=== PATIENT | male | born 1975 | race Caucasian/White ===

== ENCOUNTER 2021-04-16 12:14 | Emergency (ER) | payer SELFPAY ==
[2021-04-16 12:21] VITALS: BP 136/115; PULSE 112; RESP 19; TEMP 37.1; O2SAT 96; BMI 33.7
--- NOTE | 2021-04-16 12:26 | CT_ITS ---
WS: [id number] CT HEAD NONCONTRAST HISTORY: Possible brain bleed. TECHNIQUE: Contiguous axial imaging performed through the brain in 2.5 mm imaging. Bone and soft tiss ue windows. Sagittal and coronal reformats reviewed. All CT scans at [facility] use at least one of these dose optimization techniques: automated exposure control; mA and/or kV adjustment per pa tient size (includes targeted exams where dose is matched to clinical indication); or iterative recon struction. DLP: 946.42 mGy.cm COMPARISON: None available. No acute intracranial hemorrhage, midline shift or mass effect. No atrophy or prior infarcts or herniation. Ventricles: Normal size with no hydrocephalus. Paranasal sinuses: Mild mucoperiosteal thickening ethmoid air cells. Mastoid air cells: Well pneumatized. Calvarium and scalp: No skull fracture is identified. There is a significant scalp injury along the R IGHT skull. Starting at the vertex and to the RIGHT of midline there is a significant scalp injury wi th hematoma and air extending to the bone. This laceration scalp injury extends from anterior to the mid parietal bone. Most significant hematoma centered over the mid RIGHT parietal bone. CT/CT head wo con* [id number] IMPRESSION: 1. No acute intracranial blood or edema. 2. Severe soft tissue injury beginning at the skull vertex and extending along the RIGHT frontal, parietal and temporal regions. There is significant scalp i njury extending to the calvarium. No definite fracture identified.
--- NOTE | 2021-04-16 12:26 | CT_ITS ---
WS: [id number] CT FACIAL BONES HISTORY: scalp laceration TECHNIQUE: Images obtained from the supraorbital location through the mandible. Soft tissue and bone windows are reviewed. Coronal and sagittal reformats have also been submitted. DLP: 845.[address] scans at [facility] use at least one of these dose optimization techniques: automated e xposure control; mA and/or kV adjustment per patient size (includes targeted exams where dose is matc hed to clinical indication); or iterative reconstruction. COMPARISON: None available. Again noted is a lucency through the lateral posterior mass of C1 on the RIGHT which is highly suspic ious for fracture. Nondisplaced. The visualized calvarium is intact. No facial bone fractures. Again noted is the extensive scalp laceration beginning over the RIGHT lateral vertex and extending a long the RIGHT calvarium. Incompletely visualized on this facial bone CT. CT/CT facial bones wo con* [id number] IMPRESSION: 1. No facial bone fracture. 2. Again noted is a lucency through the RIGHT posterior lateral mass of C1 hig hly suspicious for fracture.
--- NOTE | 2021-04-16 12:27 | CT_ITS ---
WS: [id number] CT CERVICAL SPINE HISTORY: fall TECHNIQUE: Contiguous 2.5 mm axial imaging performed through the entire cervical spine. Sagittal and coronal reformats also performed. All CT scans at [facility] use at least one of these dose o ptimization techniques: automated exposure control; mA and/or kV adjustment per patient size (include s targeted exams where dose is matched to clinical indication); or iterative reconstruction. DLP: 769.1 mGy.cm COMPARISON: None available. Mild straightening of the normal cervical lordosis. Severe degenerative disc disease at C5-6 and C6-7 with hypertrophic osteophyte formation. Craniocervical junction is intact. Lateral masses of C1 and C2 are normal. The odontoid is intact. Facet joints are normally aligned. Seen best on the axial image at the skull base is a lucency which is nondisplaced extending through t he posterior lateral mass of C1 on the RIGHT. With the mechanism of injury, fracture needs to be cons idered. No additional fractures are identified. There is mild facet joint arthritis and vertebral body osteop hytosis. No acute-appearing disc herniations. Lung apices are clear. CT/CT cervical spin wo con* [id number] IMPRESSION: 1. Suspicious for nondisplaced fracture involving the RIGHT posterior lateral mass of C1. This is seen best on the axial images, image 22 of series 4. 2. No additional fractures are identified. No acute disc protrusions.
--- NOTE | 2021-04-16 12:27 | XR_ITS ---
WS: [email or web address] RIGHT SHOULDER: 3 VIEW(S) TECHNIQUE: Internal and external rotation with Y view. HISTORY: shoulder pain COMPARISON: None available. No fracture or dislocation or soft tissue abnormality. Glenohumeral and AC joints are unremarkable. XR/XR shoulder RT min 2V* [id number] IMPRESSION: Normal RIGHT shoulder.
[2021-04-16] MEDS: tetanus-dipt-pertussis 0.5 mL SDV IM (12:30)
[2021-04-16] MEDS: morphine 4 mg/mL SDV 1 mL IVP (12:30)
[2021-04-16] MEDS: ceFAZolin 1,000 MG in sodium chloride 0.9% (plus) 50 ML 100 MG IV (12:35)
[2021-04-16 13:10] LABS: Basophils # 0.1 10^3/uL (0.0-0.1); Basophils % 0.6 %; Eosinophils # 0.3 10^3/uL (0.0-0.8); Eosinophils % 2.7 %; Hematocrit 46.1 % (42.0-52.0); Hemoglobin 16.1 g/dL (11.7-16.6); Lymphocytes # 2.2 10^3/uL (0.8-4.8); Lymphocytes % 22.6 %; Mean Corpuscular HGB Conc 34.9 g/dL (30.0-36.0); Mean Corpuscular Hemoglobin 30.5 pg (28.0-34.0); Mean Corpuscular Volume 87.3 fl (80-94); Mean Platelet Volume 10.4 fL (7.4-10.4); Monocytes # 0.6 10^3/uL (0.2-0.9); Neutrophils # 6.39 10^3/uL (1.8-7.7); Neutrophils % 67.2 %; Nucleated Red Blood Cells % 0 %; Platelet Count 256 10^3/cmm (130-400); Red Blood Count 5.28 10^6/uL (4.1-5.3); Red Cell Distribution Width 11.8 % (12.1-15.1); White Blood Count 9.5 10^3/uL (4.0-10.0)
--- NOTE | 2021-04-16 13:12 | CT_ITS ---
WS: [email or web address] CT THORACIC SPINE noncontrast. HISTORY: Axial load injury. TECHNIQUE: Contiguous 2.5 mm axial images are reviewed to thoracic spine. Images are reformatted in s agittal and coronal planes. All CT scans at [facility] use at least one of these dose optimiz ation techniques: automated exposure control; mA and/or kV adjustment per patient size (includes targ eted exams where dose is matched to clinical indication); or iterative reconstruction. DLP: 2687.09 mGy.cm COMPARISON: None available. Posterior thoracic alignment is normal. Minimal disc space narrowing and desiccation throughout the t horacic spine. No thoracic spine fracture. Visualized ribs are intact. Mild dependent changes through out both lungs. No pulmonary laceration or contusion. No significant central stenosis or acute disc h erniations. No paravertebral hematoma. CT/CT thoracic spin wo con* [id number] IMPRESSION: Negative thoracic spine for acute injury. No fractures identified.
--- NOTE | 2021-04-16 13:12 | CT_ITS ---
WS: [id number] CT LUMBAR SPINE, noncontrast. HISTORY: Axial load evaluate for injury. TECHNIQUE: Contiguous 2.5 mm axial imaging are performed. Sagittal and coronal reformats are submitte d and reviewed. All CT scans at [facility] use at least one of these dose optimization techni ques: automated exposure control; mA and/or kV adjustment per patient size (includes targeted exams w here dose is matched to clinical indication); or iterative reconstruction. IV contrast: None DLP: 2585.22 mGy.cm COMPARISON: None available. Normal lumbar alignment. Disc spaces and vertebral body heights are normal. No acute fractures. Visua lized sacrum is normal. No paravertebral hematoma. No disc protrusions or stenosis. Paraspinal soft t issues are negative for acute process. There is a cystic mass incompletely visualized within the RIGH T kidney with a maximum diameter of 5.6 cm. Hounsfield units are decreased. This is probably an incid ental cyst. CT/CT lumbar spine wo con* [id number] IMPRESSION: 1. No acute lumbar spine fracture. 2. No lumbar stenosis. 3. Incidental note is made of a cystic mass in the RIGHT kidney. This can be f urther evaluated by ultrasound on an outpatient basis.
[2021-04-16 13:20] LABS: Anion Gap 15.3 (5-19); Blood Urea Nitrogen 20 mg/dL (6-20); Calcium 9.1 mg/dL (8.5-10.5); Carbon Dioxide 26 mmol/L (22-29); Chloride 101 mmol/L (98-107); Glomerular Filtration Rate 65.5 mL/min (90-130); Glucose 114 mg/dL (65-115); Osmolality Calculated 289 mOsm/kg (285-295); Potassium 4.3 mmol/L (3.5-5.1); Sodium 138 mmol/L (136-145)
[2021-04-16 13:29] VITALS: BP 129/98; PULSE 84; RESP 15; O2SAT 96
--- NOTE | 2021-04-16 13:33 | DCPLANNER ---
inside sales territory manager had message to schedule a follow up appointment for patient with ortho. inside sales territory manager called the ortho clinic, spoke with Leena, gave clinic patients information. inside sales territory manager was told that patients information would be printed and reviewed. Clinic will call patient with appointment information.
[2021-04-16] MEDS: ondansetron 2 mg/ML SDV 2 mL 4 MG IVP (13:40)
[2021-04-16] MEDS: morphine 4 mg/mL SDV 1 mL 2 MG IVP (14:22)
[2021-04-16] MEDS: lidocaine 1% INJ 20 mL INJECTION (14:55)
[2021-04-16] MEDS: sodium bicarbonate 8.4% 1 mEq/mL 50mL Syr 50 MEQ IRRIGATION (14:56)
--- NOTE | 2021-04-16 14:56 | ED_ITS ---
HPI - General Adult General: Chief complaint: Trauma Stated complaint: TREE FELL ON HIM Time Seen by Provider: 04/16/21 12:23 History of Present Illness: HPI narrative: Patient is a 45-year-old male with no significant past colorimetric presenting to the emergency room after sustaining a tree branch falling on his head. Patient reports bleeding and laceration over the right forehead. In addition, patient reports right-sided shoulder pain. Patient reports LOC, or for moderate amount of bleeding. He is not on any anticoagulation. No other focal complaints of pain or trauma. Onset: 1 hr ago Duration:1 hr Location:home Severity:moderate Review of Systems Narrative: Constitutional: No fever, no chills. HEENT: No vision changes CV: No chest pain, no palpitations PULM: no cough, no dyspnea. GI: No abdominal pain, no N/V/D. : No dysuria MSKEL: +R shoulder knot and pain SKIN: +R head/scalp laceration NEURO: No headache, no focal weakness. HEME: No visible bruises PSYCH: Normal mood PFSH ED PFSH: Surgical History (Updated 05/27/19 @ 08:30 by Robbie Cullen MD) Status post vasectomy Family History (Updated 05/26/19 @ 10:39 by Azeb Mariano LPN) Mother Arthritis Social History (Updated 05/27/19 @ 08:12 by Azeb Mariano LPN) Smoking and tobacco status: never smoked Alcohol intake: never Marital status: Current occupational status: employed Current gender identity: Male Physical Exam Narrative: EXAM NARRATIVE: Head: +R scalp stellate laceration measuring 15cm over the frontal/parietal area with extension into the skull Eyes: PERRL, conjunctiva without injection ENT: Mucous membrane moist NECK: Supple, ROM intact LUNGS: LCTAB, no crackles/rhonchi CV: RRR ABDOMEN: Soft, nontender in all quadrants EXTREMITY: +normal ROM of the shoulders b/l, no obvious dislocation or deformity, +R UE neurovascular intact SKIN: +stellate deep laceration over the R forehead extending to the skull NEURO: Awake and alert, no focal motor deficits PSYCH: Normal mood and affect Procedures Laceration Laceration 1: Site: scalp Side (If applicable): right Size (cm): 15 Description: stellate Depth: involves muscle layer Local Anesthetic: lidocaine 1% Amount of anesthesia used (mL): 15 Pre-repair: wound explored, irrigated extensively, deep structures intact and extensive debridement Skin layer closed with: other (propene) Size (cm): other Number of sutures: 6 Technique: simple, interrupted and running Course Vital Signs: Vital signs: Vital Signs Temperature 98.7 F 04/16/21 12:21 Pulse Rate 84 04/16/21 13:29 Respiratory Rate 15 04/16/21 13:29 Blood Pressure 129/98 04/16/21 13:29 Pulse Oximetry 96 04/16/21 13:29 MDM - General Adult MDM Narrative: Medical decision making narrative: 45-year-old male presents emergency room after a tree branch fell onto his head. On exam, patient have a large 15 cm stellate laceration over the right parietal area. Please refer to laceration note for repair. (6 sutures: 2 1-0 propene simple interrupted/ 3 running 3-0 propene suture/ 2 interrupted 3-0 propene sutures / 1 1-0 running propene suture). CT brain, CT skull, CT face negative for any acute findings. CT neck that showed right lateral mass fracture. He is placed in a c-collar with follow-up with Dr. Casanova. I have given patient follow up with our immigration case worker to be seen by our outpatient Orthopedics (Dr. Casanova) for evaluation of C1 fracture Patient aware of a call from our immigration case worker to schedule for appointment(s) and verbalizes understanding of the importance of following up. Intervention: pain control and IV cefazolin, TDAP RX cephalexin and bactrim DS for scalp laceration, mupiricin ointment daily for infection prevention percocet 5-325mg TID x 3 days for pain Disposition: Discharge. Patient counseled regarding diagnostic impression, treatment plan. Patient given ED strict return precautions to return for continuation, worsening, or development of new symptoms. Instructed to f/u w/ PCP for wound check in 48-72 hrs since his wound are highly likely ot be infected. Patient verbalized understanding. Patient aware the suture needs to be removed in 10 to 14-day. Lab Data: Labs: Lab Results 04/16/21 04/16/21 12:30 12:30 WBC 9.5 10^3/uL 10^3/ uL (4.0-10.0) RBC 5.28 10^6/uL 10^6 /uL (4.1-5.3) Hgb 16.1 g/dL g/dL (11.7-16.6) Hct 46.1 % % (42.0-52.0) MCV 87.3 fl fl (80-94) MCH 30.5 pg pg (28.0-34.0) MCHC 34.9 g/dL g/dL (30.0-36.0) RDW 11.8 % L % (12.1-15.1) Plt Count 256 10^3/cmm 10^3 /cmm (130-400) MPV 10.4 fL fL (7.4-10.4) Neut % (Auto) 67.2 % % Lymph % (Auto) 22.6 % % Calvert % (Auto) 6.0 % % Eos % (Auto) 2.7 % % Baso % (Auto) 0.6 % % Neut # (Auto) 6.39 10^3/uL 10^3 /uL (1.8-7.7) Lymph # (Auto) 2.2 10^3/uL 10^3/ uL (0.8-4.8) Calvert # (Auto) 0.6 10^3/uL 10^3/ uL (0.2-0.9) Eos # (Auto) 0.3 10^3/uL 10^3/ uL (0.0-0.8) Baso # (Auto) 0.1 10^3/uL 10^3/ uL (0.0-0.1) Nucleated RBC % (a uto) 0 % % Nucleated RBCs # 0.0 /100WBC /100W BC Sodium 138 mmol/L mmol/L (136-145) Potassium 4.3 mmol/L mmol/L (3.5-5.1) Chloride 101 mmol/L mmol/L (98-107) Carbon Dioxide 26 mmol/L mmol/L (22-29) Anion Gap 15.3 (5-19) BUN 20 mg/dL mg/dL (6-20) Creatinine 1.2 mg/dL mg/dL (0.7-1.2) GFR Calculation 65.5 mL/min L mL/ min (90-130) Glucose 114 mg/dL mg/dL (65-115) Calculated Osmolal ity 289 mOsm/kg mOsm/ kg (285-295) Calcium 9.1 mg/dL mg/dL (8.5-10.5) Imaging Data^: Other Imaging: Radiologist's impression: [address] [place], [place] [address]HO Scan ReportSigned Patient: Rebel Cohen #: [id number]: 1975Acct#:[id number] e/Sex: 45 / MADM Date: 04/16/21Loc: ERRoom/Bed:Attending Dr: Ordering Provider/Ordering MD: Igor Ramsay MD Date of Service: 04/16/21 Procedure(s): CT thoracic spin wo con* 76903 Accession Number(s): [id number] Report Number: [id number] WS: [email or web address] CT THORACIC SPINE noncontrast. HISTORY: Axial load injury. TECHNIQUE: Contiguous 2.5 mm axial images are reviewed to thoracic spine. Images are reformatted in sagittal and coronal planes. All CT scans at [facility] use at least one of these dose optimization techniques: automated exposure control; mA and/or kV adjustment per patient size (includes targeted exams where dose is matched to clinical indication); or iterative reconstruction. DLP: 2687.09 mGy.cm COMPARISON: None available. Posterior thoracic alignment is normal. Minimal disc space narrowing and desiccation throughout the thoracic spine. No thoracic spine fracture. Visualized ribs are intact. Mild dependent changes throughout both lungs. No pulmonary laceration or contusion. No significant central stenosis or acute disc herniations. No paravertebral hematoma. CT/CT thoracic spin wo con* [id number] IMPRESSION: Negative thoracic spine for acute injury. No fractures identified. Dictated By:Maira Chung DOSigned By:Maira Chung DOSigned Date/Time:04/16/21 1336DD/ [address] [place], [place] [address]FJ Scan ReportSigned Patient: Rebel Cohen #: [id number]: 1975Acct#:[id number]/Sex: 45 / MADM Date: 04/16/21Loc: ERRoom/Bed:Attending Dr: Ordering Provider/Ordering MD: Igor Ramsay MD Date of Service: 04/16/21 Procedure(s): CT lumbar spine wo con* 72436 Accession Number(s): [id number] Report Number: [id number] WS: [email or web address] CT LUMBAR SPINE, noncontrast. HISTORY: Axial load evaluate for injury. TECHNIQUE: Contiguous 2.5 mm axial imaging are performed. Sagittal and coronal reformats are submitted and reviewed. All CT scans at [facility] use at least one of these dose optimization techniques: automated exposure control; mA and/or kV adjustment per patient size (includes targeted exams where dose is matched to clinical indication); or iterative reconstruction. IV contrast: None DLP: 2585.22 mGy.cm COMPARISON: None available. Normal lumbar alignment. Disc spaces and vertebral body heights are normal. No acute fractures. Visualized sacrum is normal. No paravertebral hematoma. No disc protrusions or stenosis. Paraspinal soft tissues are negative for acute process. There is a cystic mass incompletely visualized within the RIGHT kidney with a maximum diameter of 5.6 cm. Hounsfield units are decreased. This is probably an incidental cyst. CT/CT lumbar spine wo con* 70618 IMPRESSION: 1. No acute lumbar spine fracture. 2. No lumbar stenosis. 3. Incidental note is made of a cystic mass in the RIGHT kidney. This can be further evaluated by ultrasound on an outpatient basis. Dictated By:Maira Chung DOSigned By:Maira Chung DOSigned Date/Time:04/16/[address] [address]FE Scan ReportSigned Patient: Rebel Cohen #: [id number]: [birth year]Acct#:[id number]/Sex: 45 / MADM Date: 04/16/21Loc: ERRoom/Bed:Attending Dr: Ordering Provider/Ordering MD: Igor Ramsay MD Date of Service: 04/16/21 Procedure(s): CT cervical spin wo con* 43800 Accession Number(s): [id number] Report Number: [id number] WS: [email or web address] CT CERVICAL SPINE HISTORY: fall TECHNIQUE: Contiguous 2.5 mm axial imaging performed through the entire cervical spine. Sagittal and coronal reformats also performed. All CT scans at [facility] use at least one of these dose optimization techniques: automated exposure control; mA and/or kV adjustment per patient size (includes targeted exams where dose is matched to clinical indication); or iterative reconstruction. DLP: 769.1 mGy.cm COMPARISON: None available. Mild straightening of the normal cervical lordosis. Severe degenerative disc disease at C5-6 and C6-7 with hypertrophic osteophyte formation. Craniocervical junction is intact. Lateral masses of C1 and C2 are normal. The odontoid is intact. Facet joints are normally aligned. Seen best on the axial image at the skull base is a lucency which is nondisplaced extending through the posterior lateral mass of C1 on the RIGHT. With the mechanism of injury, fracture needs to be considered. No additional fractures are identified. There is mild facet joint arthritis and vertebral body osteophytosis. No acute-appearing disc herniations. Lung apices are clear. CT/CT cervical spin wo con* 21560 IMPRESSION: 1. Suspicious for nondisplaced fracture involving the RIGHT posterior lateral mass of C1. This is seen best on the axial images, image 22 of series 4. 2. No additional fractures are identified. No acute disc protrusions. [facility] [place], [place] [address]UD Scan ReportSigned Patient: Rebel Cohen #: [id number]: 1975Acct#:[id number]/Sex: 45 / MADM Date: 04/16/21Loc: ERRoom/Bed:Attending Dr: Ordering Provider/Ordering MD: Igor Ramsay MD Date of Service: 04/16/21 Procedure(s): CT head wo con* [id number] Accession Number(s): [id number] Report Number: [id number] WS: [email or web address] CT HEAD NONCONTRAST HISTORY: Possible brain bleed. TECHNIQUE: Contiguous axial imaging performed through the brain in 2.5 mm imaging. Bone and soft tissue windows. Sagittal and coronal reformats reviewed. All CT scans at [facility] use at least one of these dose optimization techniques: automated exposure control; mA and/or kV adjustment per patient size (includes targeted exams where dose is matched to clinical indication); or iterative reconstruction. DLP: 946.42 mGy.cm COMPARISON: None available. No acute intracranial hemorrhage, midline shift or mass effect. No atrophy or prior infarcts or herniation. Ventricles: Normal size with no hydrocephalus. Paranasal sinuses: Mild mucoperiosteal thickening ethmoid air cells. Mastoid air cells: Well pneumatized. Calvarium and scalp: No skull fracture is identified. There is a significant scalp injury along the RIGHT skull. Starting at the vertex and to the RIGHT of midline there is a significant scalp injury with hematoma and air extending to the bone. This laceration scalp injury extends from anterior to the mid parietal bone. Most significant hematoma centered over the mid RIGHT parietal bone. CT/CT head wo con* 27581 IMPRESSION: 1. No acute intracranial blood or edema. 2. Severe soft tissue injury beginning at the skull vertex and extending along the RIGHT frontal, parietal and temporal regions. There is significant scalp injury extending to the calvarium. No definite fracture identified. Dictated By:Maira Chung DOSigned By:Maira Chung DOSigned Date/Time:04/16/21 1256DD/ [address] [address] Scan ReportSigned Patient: Rebel Cohen #: [id number]: 1975Acct#:[id number]/Sex: 45 / MADM Date: 04/16/21Loc: ERRoom/Bed:Attending Dr: Ordering Provider/Ordering MD: Igor Ramsay MD Date of Service: 04/16/21 Procedure(s): CT facial bones wo con* 63884 Accession Number(s): [id number] Report Number: [id number] WS: [email or web address] CT FACIAL BONES HISTORY: scalp laceration TECHNIQUE: Images obtained from the supraorbital location through the mandible. Soft tissue and bone windows are reviewed. Coronal and sagittal reformats have also been submitted. DLP: 845.[address] scans at [facility] use at least one of these dose optimization techniques: automated exposure control; mA and/or kV adjustment per patient size (includes targeted exams where dose is matched to clinical indication); or iterative reconstruction. COMPARISON: None available. Again noted is a lucency through the lateral posterior mass of C1 on the RIGHT which is highly suspicious for fracture. Nondisplaced. The visualized calvarium is intact. No facial bone fractures. Again noted is the extensive scalp laceration beginning over the RIGHT lateral vertex and extending along the RIGHT calvarium. Incompletely visualized on this facial bone CT. CT/CT facial bones wo con* 59895 IMPRESSION: 1. No facial bone fracture. 2. Again noted is a lucency through the RIGHT posterior lateral mass of C1 highly suspicious for fracture. Dictated By:Maira Chung DOSigned By:Maira Chung DOSigned Date/Time:04/16/21 1306DD/ [address] [address]NYot ReportSigned Patient: Rebel Cohen #: [id number]: 1975Acct#:[id number]/Sex: 45 / MADM Date: 04/16/21Loc: ERRoom/Bed:Attending Dr: Ordering Provider/Ordering MD: Igor Ramsay MD Date of Service: 04/16/21 Procedure(s): XR shoulder RT min 2V* 72968 Accession Number(s): [id number] Report Number: [id number] WS: [email or web address] RIGHT SHOULDER: 3 VIEW(S) TECHNIQUE: Internal and external rotation with Y view. HISTORY: shoulder pain COMPARISON: None available. No fracture or dislocation or soft tissue abnormality. Glenohumeral and AC joints are unremarkable. XR/XR shoulder RT min 2V* [id number] IMPRESSION: Normal RIGHT shoulder. Dictated By:Maira Chung DOSigned By:Maira Chung DOSigned Date/Time:04/16/21 1505DD/ 1504 Discharge Plan Discharge Patient Disposition: Home Clinical Impression: Laceration of scalp, Concussion, Neck fracture, Acute shoulder pain Condition: Stable Prescriptions: New Bactrim DS 800-160 mg tablet 1 tab PO BID 14 Days Qty: 28 RF: 0 cephalexin 500 mg capsule 500 mg PO Q12H 14 Days Qty: 28 RF: 0 Percocet 5-325 mg tablet 1 tab PO TID PRN (Reason: pain) 3 Days Qty: 12 RF: 0 Discharge Orders: Discharge ED (Routine); Ordered 04/16/21 Ordered By: Igor Ramsay Referrals: Russ Slaughter, JOSÉ MIGUELC [Primary Care Provider] - Discharge Diet: Advance as tolerated Discharge Activity: Resume usual activity Patient Instructions: Laceration (ED), Concussion (ED), Opioid Safety Activity Restrictions/Additional Instructions: Please have your sutures removed in the next 10 to 14 days. Come back to the e mergency room having new or concerning complaints. Our immigration case worker will have you follow-up with Orthopedics in the next few days. You would be expected to have a phone call with our immigration case worker who will put you on the schedule. Coding Level of Care Code ED Insights Strategist for Jean Napier
[2021-04-16 15:58] VITALS: BP 157/93; PULSE 105; RESP 15; O2SAT 95
--- NOTE | 2021-05-06 06:57 | DCPLANNER ---
Patient had a follow up appointment scheduled for 04.25.[address] Casanova at [facility] - patient did attend appointment,
== END 2021-04-16 16:03 | disposition home or self-care (01) ==
PROVIDERS: Emergency Provider Emergency Medicine; PCP Nurse Practitioner
DX: S01.01XA Laceration without foreign body of scalp, initial encounter (principal); S12.9XXA Fracture of neck, unspecified, initial encounter; S06.0X9A Concussion with loss of consciousness of unspecified duration, initial encounter; M25.511 Pain in right shoulder; W20.8XXA Other cause of strike by thrown, projected or falling object, initial encounter
CPT/HCPCS: 12005; 12035; 70450; 70486; 72125; 72128; 72131; 73030; 80048; 85025; 90471; 90715; 96365; 96375; 96376; 99283; 99291; J0690; J2270; J2405

== ENCOUNTER → 2021-04-25 09:00 | Outpatient (BNVA) | payer SELFPAY | PROVIDERS: PCP Nurse Practitioner; Visit Provider Orthopaedic Surgery | DX: S19.9XXA Unspecified injury of neck, initial encounter (principal); X58.XXXA Exposure to other specified factors, initial encounter; M47.812 Spondylosis without myelopathy or radiculopathy, cervical region; M50.323 Other cervical disc degeneration at C6-C7 level | CPT/HCPCS: 72040 ==

== ENCOUNTER → 2021-06-06 13:26 | Outpatient (BNVA) | payer SELFPAY | PROVIDERS: PCP Nurse Practitioner; Visit Provider Orthopaedic Surgery | DX: T14.8XXA Other injury of unspecified body region, initial encounter (principal); S12.000A Unspecified displaced fracture of first cervical vertebra, initial encounter for closed fracture | CPT/HCPCS: 72040 ==

== ENCOUNTER → 2021-07-23 09:41 | Outpatient (BNVA) | payer SELFPAY | PROVIDERS: PCP Nurse Practitioner; Visit Provider Orthopaedic Surgery | DX: T14.8XXA Other injury of unspecified body region, initial encounter (principal); S12.000A Unspecified displaced fracture of first cervical vertebra, initial encounter for closed fracture; X58.XXXA Exposure to other specified factors, initial encounter | CPT/HCPCS: 72040 ==

== ENCOUNTER 2021-08-19 09:45 | Outpatient (CLI) | payer SELFPAY ==
--- NOTE | 2021-08-19 10:04 | MR_ITS ---
WS: [id number] MRI CERVICAL SPINE NONCONTRAST TECHNIQUE: Sagittal T1, T2 and STIR imaging. Axial T2, gradient, and fiesta imaging. CLINICAL INFORMATION: T14.8XXA - Other injury of unspecified body region, initi... COMPARISON: CT April 16, 2021 FINDINGS: Straightening of the normal cervical lordosis. Cord signal is normal. No high-grade central canal annabel rowing. Previously described fracture involving the RIGHT lateral mass of C1 with no significant saima a in this area. Normal anatomic alignment. Normal C1-C2 articulation. Normal appearing occipital cond yles. Straightening of the normal cervical lordosis. Spondylitic changes worse at C5-C7. C2-C3: Normal. C3-C4: No significant disc bulging. Mild LEFT and no significant RIGHT foraminal narrowing. Mild face t arthropathy. Spinal canal is patent. C4-C5: Mild disc bulging with osteophytic ridging. Mild bilateral bony foraminal narrowing. Mild face t arthropathy. Spinal canal is patent. C5-C6: Disc osteophyte complex with endplate ridging. Mild bilateral bony foraminal narrowing. Mild f acet arthropathy. Spinal canal is patent. C6-C7: Mild disc osteophyte complex with endplate ridging. Mild bilateral bony foraminal narrowing. M ild facet arthropathy. Spinal canal is patent. C7-T1: Mild disc osteophyte complex with endplate ridging. Eccentric disc bulging results in moderate bilateral bony foraminal narrowing. Mild facet arthropathy. Spinal canal is patent. Visualized brain stem structures: Normal. Prevertebral soft tissues: Normal. MR/MR cervical spin wo con* [id number] IMPRESSION: 1. Apparent interval healing of the previously described RIGHT lateral mass C1 fracture with no edema in this location. Normal anatomic alignment. 2. No high-grade central canal stenosis. 3. Moderate bilateral bony foraminal narrowing C7-T1 due to disc bulging with eccentric osteophytic ridging. 4. Mild bilateral bony foraminal narrowing C5-C6 and C6-C7. 5. Mild spondylitic changes more prominent at C5-C7.
== END 2021-08-19 09:46 | disposition home or self-care (01) ==
PROVIDERS: PCP Nurse Practitioner; Visit Provider Orthopaedic Surgery
DX: M50.23 Other cervical disc displacement, cervicothoracic region (principal)
CPT/HCPCS: 72141